=== PATIENT | male | born 1940 | race Asian ===

== ENCOUNTER 2019-02-01 11:13 | Outpatient (CLI) | payer MEDICARE, OTHER ==
--- NOTE | 2019-02-02 07:08 | Ultrasound Report ---
Reason: NICOTINE ADDICTION, IN REMISSION Procedure Date: 02/01/2019 Accession Number: [id number] / [id number] Procedure: US - Aorta Screening CPT Code: FULL RESULT: EXAM: AORTIC DOPPLER ULTRASOUND EXAM DATE: 02/01/2019 12:05 PM CLINICAL HISTORY: Nicotine addiction, in remission. COMPARISON: None. TECHNIQUE: Real-time sonographic imaging of retroperitoneal vascular structures, including color-flow, Doppler flow and spectral analysis was performed by the recreation therapist. Multiple sales donor recruitment representative static images were saved for review. FINDINGS: Aorta: The abdominal aorta was adequately visualized. No evidence for abdominal aortic aneurysm. Aorta: Proximal: Sagittal AP 2.4 cm. Mid: Transverse 1.9 x 2.0 cm. Distal: Transverse 1.5 x 1.5 cm. Caliber: WNL: Yes. Plaque visualized: No. Iliacs: Right Iliac: Transverse 1.2 x 0.9 cm. Left Iliac: Transverse 1.2 x 1.1 cm. Iliac Vessels: The visualized proximal common iliac arteries are normal in caliber. Other: None. IMPRESSION: No abdominal aortic aneurysm. RADIA
== END 2019-02-01 11:14 | disposition home or self-care (01) ==
LOC: DI 11:13
PROVIDERS: ATTEND Family Medicine
DX: Z13.6 Encounter for screening for cardiovascular disorders (principal); F17.201 Nicotine dependence, unspecified, in remission
CPT/HCPCS: 76706

== ENCOUNTER 2023-11-10 08:14 | Day surgery (SDC) | payer MEDICARE, OTHER ==
[2023-11-10] MEDS: LACTATED RINGERS 1,000 ML IV ONE (08:39)
[2023-11-10] MEDS: CYCLOPENTOLATE 1% OPHTH DROPS 2 ML RIGHTEYE ONE (08:50)
[2023-11-10] MEDS: PROPARACAINE 0.5% OPHTH DROPS 15 ML ONE (08:50)
[2023-11-10] MEDS: KETOROLAC 0.45% OPHTH DROPS ONE (08:50)
[2023-11-10] MEDS: PHENYLEPHRINE 2.5% OPHTH 2 ML DROPS ONE (08:50)
--- NOTE | 2023-11-10 09:23 | ANESTHESIA ---
Pre-Anesthesia VS, & Labs - Diagnosis R cataract - Procedure R phacoIOL Vital Signs: Temp Pulse Resp BP Pulse Ox O2 Flow Rate 36.5 C 45 L 14 155/83 H 100 0 11/10/23 09:02 11/10/23 09:02 11/10/23 09:02 11/10/23 09:02 11/10/23 09:02 11/10/23 09:02 Height: 5 ft 3 in Weight (kg): 73 kg Body Mass Index: 28.5 BMI Classification: Overweight - NPO >8 hours Home Medications and Allergies Home Medications: Ambulatory Orders Alfuzosin HCl [Alfuzosin HCl ER] 10 mg PO DAILY 11/09/23 Finasteride [Proscar] 5 mg PO DAILY 11/09/23 Metoprolol Succinate 100 mg PO DAILY 11/09/23 Simvastatin [Zocor] 20 mg PO DAILY 11/09/23 Alfuzosin HCl [Alfuzosin HCl ER] 10 mg PO DAILY 11/09/23 Finasteride [Proscar] 5 mg PO DAILY 11/09/23 Metoprolol Succinate 100 mg PO DAILY 11/09/23 Simvastatin [Zocor] 20 mg PO DAILY 11/09/23 Allergies/Adverse Reactions: Allergies Allergy/AdvReac Type Severity Reaction Status Date / Time No Known Drug Allergies Allergy Verified 10/29/15 13:55 Anes History & Medical History - Anesthetic History Anesthesia Complications: reports: No previous complications Family history of Anesthesia Complications: Denies Family history of Malignant Hyperthermia: Denies - Medical History Cardiovascular: reports: Hypertension, High cholesterol Pulmonary: reports: None Gastrointestinal: reports: None Urinary: reports: Benign prostate hypertrophy Neuro: reports: None Musculoskeletal: reports: None Endocrine/Autoimmune: reports: None Blood Disorders: reports: None Skin: reports: None Smoking Status: Never smoker Psychosocial: reports: No issues indicated History of Cancer?: No - Surgical History General: reports: Colonoscopy Eyes Ears Nose Throat (EENT): reports: Cataracts Orthopedic: reports: Carpal Tunnel surgery Exam General: Alert, Oriented x3, Cooperative Dental: WNL Mouth Openin Fingerbreadth Neck Mobility: Normal Mallampati classification: II Thyromental Distance: 4-6 cm Respiratory: Lungs clear Cardiovascular: Regular rate Plan Anesthesia Type: MAC Consent for Procedure(s) Verified and Reviewed: Yes Code Status: Attempt Resuscitation ASA classification: 2-Mild systemic disease Is this case an emergency?: No
[2023-11-10] MEDS ORDERED: BRIMONIDINE 0.2% OPHTH DROPS 5 ML ONE (09:37)
[2023-11-10] MEDS ORDERED: EPINEPHrine 1 MG/ML AMP ONE (09:37)
[2023-11-10] MEDS ORDERED: TIMOLOL 0.5% OPHTH DROPS ONE (09:37)
[2023-11-10] MEDS ORDERED: TRIAMCIN/MOXIFLOX OPHTHALMIC 0.6 ML VIAL IO ONE (09:37)
[2023-11-10] MEDS ORDERED: BSS/LIDOCAINE/EPINEPHRINE 1 ML VIAL ONE (09:38)
[2023-11-10] MEDS ORDERED: MIDAZOLAM 2 MG/2 ML VIAL ONE (09:46)
[2023-11-10] MEDS: TIMOLOL 0.5% OPHTH DROPS OPTH ONE (09:58)
[2023-11-10] MEDS: BSS/LIDOCAINE/EPINEPHRINE 1 ML SYRINGE IO ONE (09:58)
[2023-11-10] MEDS: TRIAMCIN/MOXIFLOX OPHTHALMIC 0.6 ML VIAL IO ONE (09:58)
[2023-11-10] MEDS: BRIMONIDINE 0.2% OPHTH DROPS 5 ML OPTH ONE (09:58)
[2023-11-10] MEDS: EPINEPHrine 1 MG/ML AMP IR ONE (09:58)
[2023-11-10] MEDS: VANCOMYCIN OPHTH (TOPICAL) 10 MG/ML SYRINGE TOP ONE (09:59)
[2023-11-10] MEDS: PROPARACAINE 0.5% OPHTH DROPS 15 ML RIGHTEYE ONE (09:59)
[2023-11-10] MEDS: LACTATED RINGERS 600 ML IV ONE (10:10)
--- NOTE | 2023-11-10 10:22 | OPERATIVE REPORT ---
Operative Report - Other Other Information/Narrative: Date of Surgery: 11/10/23 Preop Dx: Visually significant cataract right eye. Cataract surgery was performed in the left eye in 2018 elsewhere. Postop Dx: Same Procedure: Phacoemulsification with posterior chamber intraocular lens implant right eye Surgeon: Dr. Leonides Morris Anesthesia: Monitored anesthesia care Complications: None Operative Indications: This is a 83-year-old M with progressive vision loss in the right eye due to 2+ nuclear sclerotic and 3+ cortical cataract. Best corrected visual acuity was 20/30 with glare to 20/800 vision in the right eye. Indications for surgery were: - Overall decrease in vision - Difficulty seeing words on a computer screen - Difficulty reading - Difficulty seeing words, closed captions, or game scores on TV - Difficulty driving in low light or at night - Difficulty driving at night because of headlights from other vehicles - Difficulty tracking a golf ball The patient was consented at length concerning the risks and benefits of cataract surgery after which the patient expressed a desire to proceed with surgery. Operative Procedure: The patient was taken into OR#3 and placed under monitored anesthesia care. A surgical time-out was conducted confirming correct patient, correct procedure, and correct surgical site. The patient was given topical anesthesia and then prepped and draped in the usual sterile fashion. The eye was entered at the 6 and 3 oclock positions. Intracameral Shugarcaine was injected into the anterior chamber followed by a dispersive viscoelastic. A continuous-tear curvilinear capsulorhexis was performed. The nucleus was hydrodissected and phacoemulsified. The cortex was evacuated using automated infusion and aspiration. A cohesive viscoelastic was injected into the capsular bag and a 21.5 diopter intraocular lens was inserted into the bag. Infusion and aspiration were used to evacuate the viscoelastic materials from the eye. The wounds were hydrated and the eye inflated to physiologic pressure using balanced salt solution. Approximately 0.25ml of a mixture of triamcinolone and moxifloxacin was injected trans-sclerally into the vitreous in the inferotemporal quadrant using a 30 gauge cannula. An additional 0.25ml of a mixture of triamcinolone and moxifloxacin was injected subconjunctivally in the superior quadrant for infection and inflammation prophylaxis. Wound integrity was checked with Weck-Margie sponges. The patient was taken from the operating room in good condition and given post-op instructions.
[2023-11-10 10:25] VITALS: BP 120/73; O2SAT 96
--- NOTE | 2023-11-10 12:54 | ANESTHESIA POST OP EVALUATION ---
Anesthesia Post Eval - Post Anesthesia Eval Vitals: Last Vital Signs Temp 36.4 C L 11/10/23 10:10 Pulse 50 L 11/10/23 10:20 Resp 18 11/10/23 10:20 BP 120/73 11/10/23 10:20 Pulse Ox 96 11/10/23 10:20 O2 Flow Rate 0 11/10/23 09:02 CV Function Including HR & BP: Stable Pain Control: Satisfactory Nausea & Vomiting: Negative Mental Status: Baseline Respiratory Status: Airway Patent Hydration Status: Satisfactory Anesthesia Complications: None
== END 2023-11-10 08:15 | disposition home or self-care (01) ==
LOC: SDS 08:14
PROVIDERS: ATTEND Ophthalmology
DX: H25.811 Combined forms of age-related cataract, right eye (principal); I10 Essential (primary) hypertension; N40.0 Benign prostatic hyperplasia without lower urinary tract symptoms; Z98.42 Cataract extraction status, left eye
CPT/HCPCS: 66984; A9270; J3490; J7120